=== PATIENT | female | born 1975 | race Caucasian/White ===

== ENCOUNTER 2016-12-05 14:49 | Emergency (ER) | payer BC ==
[2016-12-05 15:57] VITALS: BP 111/69
--- NOTE | 2016-12-05 16:52 | UC ---
Lower Extremity/Ankle HPI - HPI Summary HPI Summary: 41 yo female s/p inversion injury to left ankle playing v-ball yesterday Unable to bear wt - History of Current Complaint Chief Complaint: UCLowerExtremity Stated Complaint: ankle injury Time Seen by Provider: 12/05/16 16:28 Onset/Duration: Gradual Onset Severity Initially: Moderate Severity Currently: Moderate Pain Intensity: 4 - worse if she attempts to wt bear Pain Scale Used: 0-10 Numeric Aggravating Factor(s): Standing, Ambulation Alleviating Factor(s): Rest, Elevation Able to Bear Weight: No - Allergies/Home Medications Allergies/Adverse Reactions: Allergies Allergy/AdvReac Type Severity Reaction Status Date / Time Clarithromycin Allergy Nausea And Verified 12/05/16 15:54 Vomiting Codeine Allergy Nausea And Verified 12/05/16 15:54 Vomiting Home Medications: Home Medications Acetaminophen [Tylenol] 12/05/16 [History Confirmed 12/05/16] Fluticasone NASAL * [Flonase *] 12/05/16 [History] Montelukast Sodium TAB* [Singulair 10 MG TAB*] 12/05/16 [History] PMH/Surg Hx/FS Hx/Imm Hx Previously Healthy: Yes - Surgical History Surgical History: Yes Surgery Procedure, Year, and Place: t/a as child rt foot=bunionectomy - Family History Known Family History: Positive: Hypertension - Social History Alcohol Use: Daily Alcohol Amount: 1 Substance Use Type: None Smoking Status (MU): Never Smoked Tobacco Have You Smoked in the Last Year: No Review of Systems Constitutional: Negative Skin: Negative Eyes: Negative ENT: Negative Respiratory: Negative Cardiovascular: Negative Gastrointestinal: Negative Genitourinary: Negative Motor: Negative Neurovascular: Negative Musculoskeletal: Arthralgia, Edema Neurological: Negative Psychological: Negative All Other Systems Reviewed And Are Negative: Yes Physical Exam Triage Information Reviewed: Yes Appearance: Well-Appearing, No Pain Distress, Well-Nourished Vital Signs: Initial Vital Signs Temp 99.6 F 12/05/16 15:56 Pulse 79 12/05/16 15:56 Resp 18 12/05/16 15:56 BP 111/69 12/05/16 15:56 Pulse Ox 98 12/05/16 15:56 Vital Signs Reviewed: Yes Eyes: Positive: Conjunctiva Clear ENT: Positive: Hearing grossly normal. Negative: Nasal congestion, Nasal drainage, Tonsillar exudate, Trismus, Muffled/hoarse voice Neck: Positive: Supple, Nontender Respiratory: Positive: Lungs clear, Normal breath sounds, No respiratory distress Cardiovascular: Positive: RRR, No Murmur Bowel Sounds: Positive: Present Musculoskeletal: Positive: ROM Intact, Edema @, Other: - see image Neurological: Positive: Alert Psychological Exam: Normal Skin Exam: Normal Lower Extremity Course/Dx - Course Course Of Treatment: has crutches. will see Dr Norton in follow up next week if not improved - Differential Dx/Diagnosis Provider Diagnoses: left foot sprain Discharge - Discharge Plan Condition: Stable Disposition: HOME Patient Education Materials: Foot Sprain (ED), RICE Therapy (ED) Referrals: Davian Day [Medical Doctor] - 5 Days Additional Instructions: rest elevate ice CAM boot use crutches until able to wt bear comfortably tylenol or advil for pain Images Feet (Multiple View): 1 - tender/swollen
--- NOTE | 2016-12-05 17:06 | RAD ---
Indication: Left foot injury. 3 views of left foot demonstrates no fracture. No other bone or joint abnormality is noted. IMPRESSION: No fracture of left foot is noted.
== END 2016-12-05 17:39 | disposition home or self-care (01) ==
LOC: UCEAST 14:49
DX: S93.402A Sprain of unspecified ligament of left ankle, initial encounter (principal); X50.0XXA Overexertion from strenuous movement or load, initial encounter; Y93.68 Activity, volleyball (beach) (court)
CPT/HCPCS: 99212; G0463

== ENCOUNTER 2017-02-12 12:58 | Emergency (ER) | payer BC ==
[2017-02-12 13:06] VITALS: BP 116/74
[2017-02-12] MEDS ORDERED: Rabies VIRUS VACCINE, HDCV* 2.5 UNIT/ML 1 ML IM ONE (13:13)
[2017-02-12] MEDS ORDERED: Tetan/Diph/Pertus SYR(Tdap)* 0.5 ML SYR(BOOSTRIX) use SYR IM ONE (13:13)
[2017-02-12] MEDS ORDERED: Rabies Immune Globulin 10 ML* 150 UNIT/ML VIAL IM ONE (13:14)
--- NOTE | 2017-02-12 14:23 | UC ---
UC General HPI - HPI Summary HPI Summary: EXPOSED TO BAT TWO WEEKS AGO, IN HOUSE AND BEDROOM. NO FEVER. NO MUSCLE ACHES. NO N/V. NO RASHES. - History of Current Complaint Chief Complaint: UCGeneralIllness Stated Complaint: RABIES EXPOSURE Time Seen by Provider: 02/12/17 13:00 Hx Obtained From: Patient Hx Last Menstrual Period: 02/06/17 Onset/Duration: Sudden Onset, Lasting Weeks, Still Present Onset Severity: Mild Current Severity: Mild Pain Intensity: 0 Associated Signs & Symptoms: Positive: Other - BAT EXPOSURE. Negative: Abdominal Pain, Back Pain, Confusion, Cough, Chest Pain, Edema, Fever, Headache , Nausea, Palpitations, Syncope, SOB, Trauma, Wheezing, Weakness - Allergy/Home Medications Allergies/Adverse Reactions: Allergies Allergy/AdvReac Type Severity Reaction Status Date / Time Clarithromycin Allergy Nausea And Verified 02/12/17 13:05 Vomiting Codeine Allergy Nausea And Verified 02/12/17 13:05 Vomiting PMH/Surg Hx/FS Hx/Imm Hx Previously Healthy: Yes - Surgical History Surgical History: Yes Surgery Procedure, Year, and Place: t/a as child rt foot=bunionectomy - Family History Known Family History: Positive: Hypertension - Social History Occupation: Employed Full-time Lives: With Family Alcohol Use: Daily Alcohol Amount: 1 Substance Use Type: None Smoking Status (MU): Never Smoked Tobacco Have You Smoked in the Last Year: No Review of Systems Constitutional: Negative Skin: Negative Eyes: Negative ENT: Negative Respiratory: Negative Cardiovascular: Negative Gastrointestinal: Negative Genitourinary: Negative Motor: Negative Neurovascular: Negative Musculoskeletal: Negative Neurological: Negative Psychological: Negative All Other Systems Reviewed And Are Negative: Yes Physical Exam Triage Information Reviewed: Yes Appearance: Well-Appearing, No Pain Distress, Well-Nourished Vital Signs: Initial Vital Signs Temp 97.7 F 02/12/17 13:03 Pulse 74 02/12/17 13:03 Resp 16 02/12/17 13:03 BP 116/74 02/12/17 13:03 Pulse Ox 99 02/12/17 13:03 Vital Signs Reviewed: Yes Eye Exam: Normal ENT Exam: Normal ENT: Positive: Normal ENT inspection, Hearing grossly normal, TMs normal Dental Exam: Normal Neck exam: Normal Respiratory Exam: Normal Respiratory: Positive: Chest non-tender, Lungs clear, Normal breath sounds, No respiratory distress Cardiovascular Exam: Normal Cardiovascular: Positive: RRR, No Murmur, Pulses Normal Abdominal Exam: Normal Abdomen Description: Positive: Nontender, No Organomegaly Musculoskeletal Exam: Normal Musculoskeletal: Positive: Strength Intact Neurological Exam: Normal Psychological Exam: Normal Skin Exam: Normal Course/Dx - Differential Dx - Multi-Symptom Differential Diagnoses: Metabolic Abnormality, Other Provider Diagnoses: POST EXPOSURE RABIES VACCINE Discharge - Discharge Plan Condition: Stable Disposition: HOME Patient Education Materials: Rabies Vaccine (ED) Referrals: Lorenza Mccauley MD [Primary Care Provider] -
== END 2017-02-12 13:39 | disposition home or self-care (01) ==
LOC: UCEAST 12:58
DX: Z20.3 Contact with and (suspected) exposure to rabies (principal); Z88.1 Allergy status to other antibiotic agents; Z88.5 Allergy status to narcotic agent
CPT/HCPCS: 90375; 90471; 90472; 90715; 96372; 99211; G0463

== ENCOUNTER 2017-11-27 10:20 | Observation (INO) | payer BC ==
[~2017-11-27 10:20] MED LIST: Buffered Lidocaine 0.9% SYRIN* 5 ML/SYR SYRINGE INTRADERM ONE; Dexamethasone IV* 4 MG/ML 1 ML (4 MG) IV SLOW PU ONE; Famotidine IV* 10 MG/ML 2 ML (20 mg) IV ONE; Scopolamine 1.5 mg* PATCH TRANSDERM ONE
[2017-11-27] MEDS ORDERED: Famotidine IV* 10 MG/ML 2 ML (20 mg) ONE (10:24)
[2017-11-27] MEDS ORDERED: ceFAZolin 2 GM PREMIX (*) 2 GM/50 ML BAG IVPB ONE (10:25)
[2017-11-27] MEDS ORDERED: Dexamethasone IV* 4 MG/ML 1 ML (4 MG) ONE (10:25)
[2017-11-27] MEDS ORDERED: Scopolamine 1.5 mg* PATCH ONE (10:25)
[2017-11-27] MEDS ORDERED: Bacitracin IV* 50,000 UNITS INJ ONE (11:19)
[2017-11-27] MEDS ORDERED: Lidocaine 1% MPF wEPI 200,000* 30 ML SDV ONE (11:19)
[2017-11-27] MEDS ORDERED: Thrombin 5,000 UNITS* 1 APPLIC KIT - topical use - TOPICAL ONE (11:19)
[2017-11-27] MEDS ORDERED: Midazolam* 1 MG/ML 2 ML VIAL (2 MG) ONE (14:02)
[2017-11-27] MEDS ORDERED: fentaNYL* 50 MCG/ML 2 ML VIAL (100 MCG VIAL) ONE (14:02)
[2017-11-27] MEDS ORDERED: Propofol* 10 MG/ML 20 ML BTL IV PUSH ONE (14:02)
[2017-11-27] MEDS ORDERED: Rocuronium* 10 MG/ML VIAL ONE (14:03)
[2017-11-27] MEDS ORDERED: Lidocaine 2% PF * 5 ML VIAL ONE (14:03)
[2017-11-27] MEDS ORDERED: EPHEDrine (Pressors)* 50 MG/ML VIAL ONE (15:15)
[2017-11-27] MEDS ORDERED: Phenylephrine INJ* 10 MG/ML 1 ML VIAL (10 MG) ONE (15:25)
[2017-11-27] MEDS ORDERED: DiMENhydriNATE IV* 50 MG/ML VIAL ONE (15:56)
[2017-11-27] MEDS ORDERED: Acetaminophen TAB* 325 MG PO PRN (16:24)
[2017-11-27] MEDS ORDERED: Ondansetron 40 MG VIAL* 2 MG/ML 20 ML VIAL IV PRN (16:24)
[2017-11-27] MEDS ORDERED: Magnesium Hydroxide LIQ* 30 ML UDC PO PRN (16:24)
[2017-11-27] MEDS ORDERED: fentaNYL* 50 MCG/ML 2 ML VIAL (100 MCG VIAL) IV PRN (16:26)
[2017-11-27] MEDS ORDERED: Ketorolac INJ* 30 MG/ML 1 ML VIAL IV PRN (16:26)
[2017-11-27] MEDS ORDERED: oxyCODONE/Acetamin 5/325 MG* TAB PO PRN (16:26)
[2017-11-27] MEDS ORDERED: Naloxone* 0.4 MG/ML 1 ML VIAL IV PRN (16:26)
[2017-11-27] MEDS ORDERED: HYDROcodone/ACETAMIN 5-325 MG* 1 TAB PO PRN (16:26)
[2017-11-27] MEDS ORDERED: PROCHLORPERAZINE INJ 5 MG/ML 2 ML VIAL IV PRN (16:26)
[2017-11-27] MEDS ORDERED: Cyclobenzaprine TAB* 10 MG PO PRN (16:33)
[2017-11-27] MEDS ORDERED: Docusate CAP* 100 MG PO PRN (16:34)
[2017-11-27] MEDS ORDERED: Ketorolac INJ* 30 MG/ML 1 ML VIAL ONE (16:44)
[2017-11-27] MEDS: oxyCODONE SR TAB(*) 10 MG TAB.SR PO SCH (21:23)
--- NOTE | 2017-11-27 21:25 | RAD ---
INDICATION: Left lumbar discectomy COMPARISONS: None relevant TECHNIQUE: Fluoroscopy was provided for a surgical procedure. Total fluoroscopy time is: 14.8 seconds FINDINGS: A single spot image demonstrates a metallic probe within the L5-S1 intervertebral disc space counting from L5 as the last lumbar type vertebral body. IMPRESSION: FLUOROSCOPY WAS PROVIDED FOR A SURGICAL PROCEDURE CPT II Codes: G9500
[2017-11-28] MEDS: HYDROcodone/ACETAMIN 5-325 MG* 1 TAB PO PRN ×2 (02:28→07:21)
[2017-11-28 03:38] VITALS: BP 106/50
--- NOTE | 2017-11-28 08:53 | PN ---
Progress Note - Progress Note Date of Service: 11/28/17 SOAP: Subjective: [S/p MIS lumbar discectomy L5-S1 left, POD#1. Patient feeling well this morning, pre-op symptoms improving. Ambulating independently to the bathroom. Pain well controlled with PO pain medications. Denies headache and nausea. ] Objective: [Vital Signs: Temp Pulse Resp BP Pulse Ox 98.3 F 74 16 106/50 99 11/28/17 03:29 11/28/17 03:29 11/28/17 07:21 11/28/17 03:29 11/28/17 03:29 General: Alert and laying comfortably in bed. Neuro: Motor and sensory intact. Incision: Dressing intact and dry. ] Assessment: [Satisfactory post-op course. ] Plan: [1. Discharge home today. 2. Discharge instructions discussed with the patient. ]
[2017-11-28] MEDS: oxyCODONE SR TAB(*) 10 MG TAB.SR PO SCH (09:35)
--- NOTE | 2017-11-28 12:43 | OP ---
DATE OF OPERATION: 11/27/17 - ROOM #347 DATE OF : 79 SURGEON: Jared Ignacio MD BRANCH SPECIALIST: RAMONA Estrada. Case was done with the assistance of surgical PA because of the complexity of the case. ANESTHESIA: General. PRE-OP DIAGNOSIS: Left L5-S1 herniated nucleus pulposus. POST-OP DIAGNOSIS: Left L5-S1 herniated nucleus pulposus. PROCEDURE PERFORMED: The patient underwent a left L5-S1 minimally invasive diskectomy and fragmentectomy with extended foraminotomy. ESTIMATED BLOOD LOSS: 25 cc. COMPLICATIONS: None. SUMMARY: The patient is a very pleasant 41-year-old female with complaints of back pain radiating to the left lower extremity with weakness and loss of sensation in the left lower extremity. MRI revealed the large left L5-S1 herniated nucleus pulposus. After failing conservative treatment, she was offered the option of surgical intervention in the form of left L5-S1 diskectomy. After explaining expectations, limitations, and possible complications of the procedure with complications including, but not limited to bleeding, infection, risk of damage to adjacent structures, paralysis, , need for additional procedures, anesthesia risk, stroke, blindness, cancer, instability, spinal fluid leak, the patient was agreeable to proceed with surgery. Informed consent was obtained and the same were discussed with the patient's sister. She understood that her condition may not improve and in fact may get worse after the surgery and she may need to have additional procedure in the future. She understood that operative plan may be modified according to intraoperative findings and conditions. DESCRIPTION OF PROCEDURE: The patient was brought to the operating room and was placed under general anesthesia by the anesthesia team. She was carefully positioned prone on Ron frame on the Fritz table and all bony prominences were meticulously padded. The skin was prepped and draped in the standard fashion and after appropriate surgical pause and patient identification, a small left paramedian incision over the disk space of L5-S1 was marked on the skin with the assistance of intraoperative fluoroscopic imaging. The incision was infiltrated with local anesthetic. A #10 surgical blade was used to incise the skin. The incision was carried down to the dorsal fascia and over series of dilators, a [employer] tubular retractor system was introduced into the field. Operative microscope was brought into the field and the left lamina of L5 as well as the medial part of L5- S1 facet was readily identified that exposed with Bovie cautery. A small laminotomy and medial facetectomy was performed with high speed drill and Kerrison punches. After excising small amount of the ligament of flavum, the lateral border of the dura as well as the left S1 nerve root was readily identified until meet some enlarged disk protrusion was identified under the posterior ligament. After gently retracting medially the nerve root and the thecal sac with the nerve root retractor, the posterior ligament was opened and fragmentectomy was performed. Significant amount of degenerative disk material was identified and removed carefully. Degenerative disk material from the disk space was gently removed with pituitary rongeurs. Intraoperative fluoroscopic imaging confirmed the appropriate surgical level. After copious irrigation and meticulous hemostasis and after meticulous inspection of the wound, the dura was found to be free of any pressure phenomenon as well as the nerve root and meticulous hemostasis was confirmed. The tubular retractor was then gently removed and incision was closed by layers with 0 interrupted Vicryl sutures to approximate the dorsal fascia, 2-0 interrupted inverted Vicryl used to approximate the subcutaneous tissue while the skin was covered with Dermabond. At the end of the procedure, all counts were reported to be correct. The patient remained hemodynamically stable throughout the case. At the end of the procedure, the patient was turned supine , was extubated and was transferred to the Recovery in excellent condition. The case was done with the assistance of surgical PA because of the complexity of the case. [id number]/CPS #: [id number] ANDRE
[2017-11-30] MEDS ORDERED: Scopolamine PATCH Remove* 1 NOTE MISC PATCH OFF ONE (06:00)
== END 2017-11-28 10:40 | disposition home or self-care (01) ==
LOC: OR 10:20 → SSU 17:20
PROVIDERS: ADMIT Neurological Surgery; ATTEND Neurological Surgery
PROC: 0SB20ZZ Excision of Lumbar Vertebral Disc, Open Approach (ICD-10-PCS; 2017-11-27)
PROC: 01NB0ZZ Release Lumbar Nerve, Open Approach (ICD-10-PCS; principal; 2017-11-27 10:45)
DX: M51.17 Intervertebral disc disorders with radiculopathy, lumbosacral region (principal); M54.32 Sciatica, left side; J45.909 Unspecified asthma, uncomplicated; F41.9 Anxiety disorder, unspecified; Z79.899 Other long term (current) drug therapy; Z83.3 Family history of diabetes mellitus; Z82.49 Family history of ischemic heart disease and other diseases of the circulatory system; Z82.3 Family history of stroke
CPT/HCPCS: 36415; 72100; 86703; 96374; A9270-GY; G0378; J0690; J1100; J1240; J1885; J2001; J2250; J2704; J3010